=== PATIENT | male | born 1940 | race Asian ===

== ENCOUNTER 2018-11-22 10:41 | Outpatient (CLI) | payer OTHER | END 2018-11-22 20:05 | disposition home or self-care (01) | LOC: RAD 10:41 | DX: M54.17 Radiculopathy, lumbosacral region (principal) ==

== ENCOUNTER 2019-08-31 12:15 | Outpatient (CLI) | payer OTHER ==
[~2019-08-31] VITALS: Ht 167.6 cm; Wt 70.8 kg
[2019-08-31 15:10] VITALS: BP 128/84; TEMP 98.7
== END 2019-08-31 19:12 | disposition home or self-care (01) ==
LOC: INF 12:15 → LABW 12:15 → RAD 12:15 → INF 19:12
PROVIDERS: Nurse Practitioner Family
DX: E86.0 Dehydration (principal); R10.816 Epigastric abdominal tenderness
CPT/HCPCS: 36415; 80053; 82150; 82565; 83690; 96360; 96361; Q9963